=== PATIENT | female | born 1990 | race Caucasian/White ===

== ENCOUNTER 2017-03-29 17:19 | Emergency (ER) | payer OTHER ==
[~2017-03-29] VITALS: Ht 160 cm; Wt 72.0 kg
[~2017-03-29 17:19] MED LIST: ADVAI100I PO; ALBU2.5I NEB; CALC600T34 PO; CYAN1000P IM; ERGO50000 PO; FLOVENT110 MCG/A INH; IRONTAB4 PO; MONT10TA2 PO; MULT-65 PO; OXYC1SOL5 PO; XOPEAER4 INH; ZITHTAB PO
[2017-03-29 17:21] VITALS: BP 145/67; PULSE 108; RESP 19; TEMP 98; O2SAT 100
--- NOTE | 2017-03-29 17:25 | PD ---
Physical Exam Time Seen by Provider: 17:23 Narrative 27 y/o female w/ hx of asthma presents with 4-5 days of wheezing. Using at home medications with some relief. vital signs reviewed. Seen at triage desk. Awaiting bed placement. Data Data Last Documented VS Vital Signs Date Time Temp Pulse Resp B/P Pulse Ox O2 Delivery O2 Flow Rate FiO2 03/29/17 17:21 98.0 108 19 145/67 100 MDM Medical Record Reviewed: Yes Supervised Visit with MARLI: Fabiano Thomas March 29, 2017 17:24
[2017-03-29] MEDS ORDERED: RESP: ALBUTEROL 2.5 MG/IPRATROPIUM 0.5 MG NEB (SCH) INH ONE (18:15)
[2017-03-29] MEDS ORDERED: predniSONE 20 MG TAB PO ONE (18:15)
--- NOTE | 2017-03-29 18:18 | PD ---
HPI Chief Complaint: Respiratory Symptoms Time Seen by Provider: 18:14 Travel History International Travel<30 days: No Contact w/Intl Traveler<30days: No Traveled to known affect area: No History of Present Illness HPI 27-year-old female presents to emergency department with complaint of asthma exacerbation for the last 2-3 days. Says her inhaler and albuterol nebulizers aren't working for her anymore. She has been using them without relief of chest tightness and shortness of breath. At that she's really not a wheezer just feels like she is breathing through a straw. Reports onset of nasal congestion this morning but otherwise denies other upper respiratory symptoms. Denies fever, vomiting. Allergies to Pediazole, penicillin, sulfa. Has no other medical complaints. No other modifying factors or associated signs and symptoms. PFSH Past Medical History Asthma: Yes Autoimmune Disease: Yes (LUPUS) Cancer: No Cardiovascular Problems: No Diabetes: No Diminished Hearing: No Endocrine: No GERD: Yes Genitourinary: No Hepatitis: No Hiatal Hernia: No Immune Disorder: Yes (lupus) Musculoskeletal: No Neurologic: No Psychiatric: No Respiratory: Yes (ASTHMA) Immunizations Current: No Thyroid Disease: No ?: Not LMP: 03/29/17 Menopausal: No : 0 Para: 0 Miscarriage: 0 : 0 Past Surgical History Other Surgery: Yes (PREMELANOMA) Social History Alcohol Use: No Tobacco Use: No Substance Use: No Allergies-Medications (Allergen,Severity, Reaction): Coded Allergies: Pediazole (Verified Allergy, Severe, ANAPHILAXIS, 03/29/17) Penicillin (Verified Allergy, Severe, ANAPHILAXIS, 03/29/17) Sulfa (Verified Allergy, Severe, ANAPHILAXIS, 03/29/17) Reported Meds & Prescriptions Reported Meds & Active Scripts Active Zithromax Z-David (Azithromycin) 250 Mg Dspk 250 Mg PO DIRECTED 500 MG (2 tabs) day 1, then 1 tab days 2-5. Nasonex Nasal [place] (Mometasone Furoate) 50 Mcg/Act Naspr 2 [place] EACH NARE DAILY PRN Deltasone (Prednisone) 20 Mg Tab 40 Mg PO DAILY 4 Days start 03/30/2017 Reported Ventolin Hfa 18 GM Inh (Albuterol Sulfate) 90 Mcg/Act Aer 2 Puff INH Q4-6H PRN Multi Vitamin (Multiple Vitamin) 1 Tab Tab 1 Tab PO DAILY Singulair (Montelukast Sodium) 10 Mg Tab 10 Mg PO DAILY Vitamin D3 (Cholecalciferol) 50,000 Unit Tab 50,000 Units PO Q7D Cyanocobalamin Inj (Cyanocobalamin) 1,000 Mcg/Ml Inj 1,000 Mcg IM EVERY 2 WEEKS Calcium 600 Mg Tab 1,200 Mg PO DAILY Albuterol Neb (Albuterol Sulfate) 2.5 Mg/3 Ml Neb 2.5 Mg NEB Q4HR PRN Advair Diskus Inh (Fluticasone-Salmeterol Inh) 500-50 Mcg/Blist Aer 1 Puff INH BID Rinse mouth after use. Review of Systems Except as stated in HPI: all other systems reviewed are Neg Physical Exam Narrative GENERAL: Well-nourished, well-developed female patient, in no acute distress SKIN: Warm and dry. HEAD: Atraumatic. Normocephalic. EYES: Pupils equal and round. No scleral icterus. No injection or drainage. ENT: Mucosa pink and moist. Airway patent. NECK: Trachea midline. CARDIOVASCULAR: Regular rate and rhythm. No murmur appreciated. RESPIRATORY: No accessory muscle use. Breath sounds clear and equal bilaterally with decreased lung sounds in bilateral bases. No retractions or tachypnea. GASTROINTESTINAL: Flat. MUSCULOSKELETAL: No obvious deformities. No clubbing. No cyanosis. No edema. NEUROLOGICAL: Awake and alert. Oriented 3. No obvious cranial nerve deficits. Motor grossly within normal limits. Normal speech. PSYCHIATRIC: Appropriate mood and affect; insight and judgment normal. Data Data Last Documented VS Vital Signs Date Time Temp Pulse Resp B/P Pulse Ox O2 Delivery O2 Flow Rate FiO2 03/29/17 17:21 98.0 108 19 145/67 100 Orders Prednisone (Deltasone) (03/29/17 18:15) Albuterol-Ipratropium Neb (Duoneb Neb) (03/29/17 18:15) Albuterol-Ipratropium Neb (Duoneb Neb) (03/29/17 19:30) Azithromycin (Zithromax) (03/29/17 19:30) [facility] Medical Decision Making Medical Screen Exam Complete: Yes Emergency Medical Condition: Yes Medical Record Reviewed: Yes Differential Diagnosis Asthma exacerbation, viral illness, bronchitis Narrative Course 27-year-old female with history of asthma with mild asthma exacerbation. She also reports nasal congestion that started today. Denies fever or vomiting. Patient is afebrile nontoxic appearing. She is in no acute distress and oxygen saturation is other percent on room air. She is without retractions or tachypnea. Lungs are clear and equal throughout with decreased breath sounds in bilateral bases. DuoNeb and Deltasone administered in the ER. 1900: CK Burgos assumed patient care at this time. See her note for final patient disposition. Diagnosis Primary Impression: Asthma exacerbation Additional Impression: Nasal congestion Referrals: Primary Care Physician Patient Instructions: Asthma (ED), General Instructions Departure Forms: Tests/Procedures, Work Release Enter return to work date: March 31, 2017 Additional Instructions: Use albuterol inhaler 2-4 puffs every 4 hours at home as needed for shortness of breath and wheezing Take oral steroids as prescribed and complete full course avoid asthma triggers such as second hand smoke, dust, known allergens Follow-up with primary care provider within 1 to 2 days Return to emergency department immediately with worsening of symptoms Med/Other Pt SpecificInfo: Prescription(s) given Scripts Azithromycin (Zithromax Z-David)250 Mg [id number] Mg PO DIRECTED #1 DSPK Ref 0 500 MG (2 tabs) day 1, then 1 tab days 2-5. Prov:Radha Henriquez 03/29/17 Mometasone Nasal [place] (Nasonex Nasal [place])50 Mcg/Act Naspr2 [place] EACH NARE DAILY PRN (NASAL CONGESTION) #1 BOTTLE Ref 0 Prov:Thelma Brown 03/29/17 Prednisone (Deltasone)20 Mg Tab40 Mg PO DAILY 4 Days Ref 0 start 03/30/2017 Prov:Thelma Brown 03/29/17 Disposition: 01 DISCHARGE HOME Condition: Stable Thelma Brown March 29, 2017 18:18
[2017-03-29] MEDS ORDERED: PRED-503 PO (18:49)
[2017-03-29] MEDS ORDERED: MOME17I EACH NARE (18:49)
[2017-03-29] MEDS ORDERED: MONT10TA2 PO (18:56)
[2017-03-29] MEDS ORDERED: ADVA500A INH (18:56)
[2017-03-29] MEDS ORDERED: CALC600T13 PO (18:56)
[2017-03-29] MEDS ORDERED: CHOL1TAB16 PO (18:56)
[2017-03-29] MEDS ORDERED: ALBU0.08 NEB (18:56)
[2017-03-29] MEDS ORDERED: MULT-135 PO (18:56)
[2017-03-29] MEDS ORDERED: CYAN1000P IM (18:56)
[2017-03-29] MEDS ORDERED: VENTAER INH (18:57)
[2017-03-29] MEDS ORDERED: ZITHTAB PO (19:24)
--- NOTE | 2017-03-29 19:24 | PD ---
Physical Exam Time Seen by Provider: 19:24 Narrative Please refer to previous providers documentation for details surrounding the patient's current visit. Data Data Last Documented VS Vital Signs Date Time Temp Pulse Resp B/P Pulse Ox O2 Delivery O2 Flow Rate FiO2 03/29/17 17:21 98.0 108 19 145/67 100 Orders Prednisone (Deltasone) (03/29/17 18:15) Albuterol-Ipratropium Neb (Duoneb Neb) (03/29/17 18:15) Albuterol-Ipratropium Neb (Duoneb Neb) (03/29/17 19:30) Azithromycin (Zithromax) (03/29/17 19:30) MDM Medical Record Reviewed: Yes Supervised Visit with MARLI: No Narrative Course 27 year-old female history of asthma presents to the emergency department for evaluation of worsening shortness of breath with associated wheezing. Patient states she now has cough and cold symptoms. States that her asthma is poorly controlled and this is being worked on outpatient. States typically when she begins to have an exacerbation she is started on azithromycin due to previous pneumonia diagnosis. She had a chest x-ray done last week which she states was clear. Patient continues to have slight amount of wheezing and chest tightness. She'll given additional DuoNeb. Upon reassessment, patient states that she does feel much better. Wheezing has resolved. Patient will be started on oral corticosteroids and provided prescription for azithromycin. She is encouraged to follow-up with her primary care provider and return immediately with any acute worsening symptoms. Diagnosis Primary Impression: Asthma exacerbation Additional Impression: Nasal congestion Referrals: Primary Care Physician Patient Instructions: General Instructions, Asthma (ED) Departure Forms: Work Release, Enter return to work date: Tests/Procedures Additional Instruction: Use albuterol inhaler 2-4 puffs every 4 hours at home as needed for shortness of breath and wheezing Take oral steroids as prescribed and complete full course avoid asthma triggers such as second hand smoke, dust, known allergens Follow-up with primary care provider within 1 to 2 days Return to emergency department immediately with worsening of symptoms Scripts Azithromycin (Zithromax Z-David)250 Mg [id number] Mg PO DIRECTED #1 DSPK Ref 0 500 MG (2 tabs) day 1, then 1 tab days 2-5. Prov:Radha Henriquez 03/29/17 Mometasone Nasal [place] (Nasonex Nasal [place])50 Mcg/Act Naspr2 [place] EACH NARE DAILY PRN (NASAL CONGESTION) #1 BOTTLE Ref 0 Prov:Thelma Brown 03/29/17 Prednisone (Deltasone)20 Mg Tab40 Mg PO DAILY 4 Days Ref 0 start 03/30/2017 Prov:Thelma Brown 03/29/17 Disposition: 01 DISCHARGE HOME Condition: Stable Radha Henriquez March 29, 2017 19:24
[2017-03-29] MEDS: RESP: ALBUTEROL 2.5 MG/IPRATROPIUM 0.5 MG NEB (SCH) INH ×2 (19:27→19:28)
[2017-03-29] MEDS ORDERED: AZITHROMYCIN 250 MG TAB PO ONE (19:30)
== END 2017-03-29 20:09 | disposition home or self-care (01) ==
LOC: NEPK 17:19
DX: J45.901 Unspecified asthma with (acute) exacerbation (principal); R09.81 Nasal congestion; R07.89 Other chest pain; Z87.09 Personal history of other diseases of the respiratory system; Z86.2 Personal history of diseases of the blood and blood-forming organs and certain disorders involving the immune mechanism; Z87.19 Personal history of other diseases of the digestive system
CPT/HCPCS: 94640; 94664; 99282; J7512

== ENCOUNTER 2018-01-30 00:29 | Emergency (ER) | payer OTHER ==
[~2018-01-30] VITALS: Ht 160 cm; Wt 72.6 kg
[~2018-01-30 00:29] MED LIST changes: +ADVA500A INH; -ADVAI100I PO; +ALBU0.08 NEB; -ALBU2.5I NEB; +CALC600T13 PO; -CALC600T34 PO; +CHOL1TAB16 PO; -ERGO50000 PO; -FLOVENT110 MCG/A INH; -IRONTAB4 PO; +MOME17I EACH NARE; +MULT-135 PO; -MULT-65 PO; -OXYC1SOL5 PO; +PRED-503 PO; +VENTAER INH; -XOPEAER4 INH
[2018-01-30 00:41] VITALS: BP 121/68; PULSE 98; RESP 18; TEMP 97.9; O2SAT 99
[2018-01-30] MEDS ORDERED: MULTTAB67 PO (01:01)
[2018-01-30] MEDS ORDERED: AZIT250T3 PO (01:08)
[2018-01-30] MEDS ORDERED: PLAQ200T PO (01:12)
[2018-01-30] MEDS ORDERED: VITADRO3 PO (01:17)
[2018-01-30] MEDS ORDERED: Calcium PO (01:18)
[2018-01-30] MEDS ORDERED: SODIUM CHLOR 0.9% 1000 ML INJ 1,000 ML IV ONE ×2 (01:41→03:00)
[2018-01-30] MEDS ORDERED: ONDANSETRON HCL 4 MG/2 ML VIAL IV PUSH ONE ×2 (01:45→04:15)
[2018-01-30] MEDS ORDERED: SODIUM CHLORIDE 0.9% FLUSH 10 ML FLUSH IVF PRN (01:45)
--- NOTE | 2018-01-30 01:46 | PD ---
HPI Chief Complaint: GI Complaint Time Seen by Provider: 01:41 Travel History International Travel<30 days: No Contact w/Intl Traveler<30days: No Traveled to known affect area: No History of Present Illness HPI 27-year-old female presents to the emergency department complaint of 2 days of nausea vomiting diarrhea and intermittent abdominal pain. Patient states son with recent similar symptoms and coworkers was recent similar symptoms. No report of hematemesis or coffee-ground emesis. Patient states with onset of diarrhea did note some mucoid stool and some dark stool but now has clear urine looking diarrhea. Patient continues to produce urine. No report of fever. Patient denies and is currently menstruating. Patient has history of lupus and asthma which she reports is well controlled. Patient states she takes azithromycin with probiotic daily. Current discomfort is rated 3/10 intensity. 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) Cancer: No Cardiovascular Problems: No Diabetes: No Diminished Hearing: No Endocrine: No GERD: Yes Genitourinary: No Hepatitis: No Hiatal Hernia: No Immune Disorder: Yes (Lupus) Musculoskeletal: No Neurologic: No Psychiatric: No Respiratory: Yes (ASTHMA) Immunizations Current: No Thyroid Disease: No Tetanus Vaccination: Unknown Influenza Vaccination: No ?: Unknown LMP: NOW Menopausal: No : 1 Para: 1 Miscarriage: 0 : 0 Past Surgical History Abdominal Surgery: Yes Section: Yes Other Surgery: Yes (PREMELANOMA) Social History Alcohol Use: Yes (Rarely) Tobacco Use: No Substance Use: No Allergies-Medications (Allergen,Severity, Reaction): Coded Allergies: Sulfa (Sulfonamide Antibiotics) (Unverified Allergy, Severe, ANAPHILAXIS, 01/30/18) erythromycin base (Unverified Allergy, Severe, ANAPHILAXIS, 01/30/18) penicillin G (Unverified Allergy, Severe, ANAPHILAXIS, 01/30/18) sulfisoxazole (Unverified Allergy, Severe, ANAPHILAXIS, 01/30/18) Reported Meds & Prescriptions Reported Meds & Active Scripts Active Nasonex Nasal [place] (Mometasone Furoate) 50 Mcg/Act Naspr 2 [place] EACH NARE DAILY PRN Reported [Calcium ] 600 Tab PO DAILY Vitamin D3 Liq Drops (Cholecalciferol) 5,000 Unit/Ml Drops 4 Drop PO DAILY Take with meals. Plaquenil (Hydroxychloroquine Sulfate) 200 Mg Tab 200 Mg PO DAILY Take with food Azithromycin 250 Mg Tab 200 Mg PO DAILY Multiple Vitamin 1 Tab 1 Tab PO DAILY Ventolin Hfa 18 GM Inh (Albuterol Sulfate) 90 Mcg/Act Aer 2 Puff INH Q4-6H PRN Singulair (Montelukast Sodium) 10 Mg Tab 10 Mg PO DAILY Cyanocobalamin Inj (Cyanocobalamin) 1,000 Mcg/Ml Inj 1,000 Mcg IM EVERY 2 WEEKS Albuterol Neb (Albuterol Sulfate) 2.5 Mg/3 Ml Neb 2.5 Mg NEB Q4HR PRN Advair Diskus Inh (Fluticasone-Salmeterol Inh) 500-50 Mcg/Blist Aer 1 Puff INH BID Rinse mouth after use. Review of Systems Except as stated in HPI: all other systems reviewed are Neg General / Constitutional: No: Fever HENT: No: Congestion Cardiovascular: No: Chest Pain or Discomfort Respiratory: No: Shortness of Breath Gastrointestinal: Positive: Nausea, Vomiting, Diarrhea, Abdominal Pain Genitourinary: No: Dysuria (Intermittent) Musculoskeletal: No: Myalgias, Arthralgias Skin: No Rash Neurologic: No: Weakness Psychiatric: No: Anxiety Hematologic/Lymphatic: No: Easy Bruising Physical Exam Narrative GENERAL: Well-developed well-nourished female no acute distress or respiratory distress SKIN: Warm and dry. HEAD: Normocephalic. EYES: No scleral icterus. No injection or drainage. NECK: Supple, trachea midline. No JVD or lymphadenopathy. CARDIOVASCULAR: Regular rate and rhythm without murmurs, gallops, or rubs. RESPIRATORY: Breath sounds equal bilaterally. No accessory muscle use. GASTROINTESTINAL: Abdomen soft, non-tender, no guarding or rebound, nondistended. MUSCULOSKELETAL: No cyanosis, or edema. BACK: Nontender without obvious deformity. No CVA tenderness. Data Data Last Documented VS Vital Signs Date Time Temp Pulse Resp B/P (MAP) Pulse Ox O2 Delivery O2 Flow Rate FiO2 01/30/18 02:21 88 16 119/70 (86) 100 Room Air 01/30/18 00:41 97.9 Orders Orders Complete Blood Count With Diff (01/30/18 01:41) Comprehensive Metabolic Panel (01/30/18 01:41) Urinalysis - C+S If Indicated (01/30/18 01:41) Lipase (01/30/18 01:41) Abdomen, Flat & Upright (01/30/18 ) Iv Access Insert/Monitor (01/30/18 01:41) Ecg Monitoring (01/30/18 01:41) Oximetry (01/30/18 01:41) Ondansetron Inj (Zofran Inj) (01/30/18 01:45) Sodium Chlor 0.9% 1000 Ml Inj (Ns 1000 M (01/30/18 01:41) Sodium Chloride 0.9% Flush (Ns Flush) (01/30/18 01:45) Enteric Path (Stool) (01/30/18 01:41) Ed Urine Pregnancytest Poc (01/30/18 01:41) Sodium Chlor 0.9% 1000 Ml Inj (Ns 1000 M (01/30/18 03:00) Ct Abd/Pel W Iv Contrast(Rout) (01/30/18 ) Iohexol 350 Inj (Omnipaque 350 Inj) (01/30/18 03:22) Labs Laboratory Tests Test 01/30/18 01:30 01/30/18 02:00 Urine Collection Type CATH Urine Color YELLOW Urine Turbidity CLEAR Urine pH 6.0 Urine Specific [place] 1.025 Urine Protein TRACE mg/dL Urine Glucose (UA) NEG mg/dL Urine Ketones 80 OR GREATER mg/dL Urine Occult Blood MOD Urine Nitrite NEG Urine Bilirubin NEG Urine Urobilinogen 0.2 MG/DL Urine Leukocyte Esterase NEG Urine RBC 0-3 /hpf Urine Squamous Epithelial Cells 0-5 /hpf Urine Mucus MOD /lpf Microscopic Urinalysis Comment CULT NOT INDICATED White Blood Count 16.4 TH/MM3 Red Blood Count 4.99 MIL/MM3 Hemoglobin 15.2 GM/DL Hematocrit 43.6 % Mean Corpuscular Volume 87.4 FL Mean Corpuscular Hemoglobin 30.5 PG Mean Corpuscular Hemoglobin Concent 34.9 % Red Cell Distribution Width 13.1 % Platelet Count 217 TH/MM3 Mean Platelet Volume 7.8 FL Neutrophils (%) (Auto) 86.8 % Lymphocytes (%) (Auto) 4.0 % Monocytes (%) (Auto) 4.6 % Eosinophils (%) (Auto) 0.2 % Basophils (%) (Auto) 4.4 % Neutrophils # (Auto) 14.2 TH/MM3 Lymphocytes # (Auto) 0.7 TH/MM3 Monocytes # (Auto) 0.8 TH/MM3 Eosinophils # (Auto) 0.0 TH/MM3 Basophils # (Auto) 0.7 TH/MM3 CBC Comment DIFF FINAL Differential Comment Blood Urea Nitrogen 10 MG/DL Creatinine 0.74 MG/DL Random Glucose 95 MG/DL Total Protein 8.0 GM/DL Albumin 4.3 GM/DL Calcium Level 8.8 MG/DL Alkaline Phosphatase 55 U/L Aspartate Amino Transf (AST/SGOT) 10 U/L Alanine Aminotransferase (ALT/SGPT) 25 U/L Total Bilirubin 0.7 MG/DL Sodium Level 139 MEQ/L Potassium Level 3.4 MEQ/L Chloride Level 106 MEQ/L Carbon Dioxide Level 25.0 MEQ/L Anion Gap 8 MEQ/L Estimat Glomerular Filtration Rate 96 ML/MIN Lipase 123 U/L MDM Medical Decision Making Medical Screen Exam Complete: Yes Emergency Medical Condition: Yes Medical Record Reviewed: Yes Interpretation(s) POC hcg: negative Last Impressions Abdomen/Pelvis CT 01/30/18 0000 Signed Impressions: Service Date/Time: Tuesday, January 30, 2018 03:17 - CONCLUSION: 1. There is a small amount of free fluid in the posterior cul-de-sac within the pelvis. This is nonspecific but may be physiologic. 2. Small bowel and colon is mostly filled with fluid. There are no findings to indicate obstruction. Rafiq Escalona MD Abdomen X-Ray 01/30/18 0000 Signed Impressions: Service Date/Time: Tuesday, January 30, 2018 01:47 - CONCLUSION: No acute abnormality is identified. Rafiq Escalona MD CBC & BMP Diagram 01/30/18 02:00 Total Protein 8.0, Albumin 4.3, Calcium Level 8.8, Alkaline Phosphatase 55, Aspartate Amino Transf (AST/SGOT) 10 L, Alanine Aminotransferase (ALT/SGPT) 25, Total Bilirubin 0.7 Vital Signs Date Time Temp Pulse Resp B/P (MAP) Pulse Ox O2 Delivery O2 Flow Rate FiO2 01/30/18 02:21 88 16 119/70 (86) 100 Room Air 01/30/18 00:41 97.9 98 18 121/68 (85) 99 Differential Diagnosis Gastroenteritis, foodborne illness, viral syndrome, dehydration, electrolyte disturbance, anemia, C. difficile Narrative Course IV access obtained specimens collected and sent for resulting patient given liter of normal saline along with Zofran 4 mg IV Diagnosis Primary Impression: Acute gastroenteritis Additional Impression: Dehydration Referrals: Primary Care Physician 2 days Patient Instructions: General Instructions Departure Forms: Tests/Procedures, Work Release Special Instructions: no work x 2 days Additional Instructions: Follow-up with your primary care provider Follow clear liquid diet for next 12-24 hours advance as tolerated to bland/ brat diet then regular diet avoiding fried and fatty foods Monitor temperature every 4 hours with thermometer; take acetaminophen/Tylenol as needed for fever 100.4F or greater Take ibuprofen as tolerated for pain associated with inflammation or for fever 100.4F or greater no more often than every 6-8 hours No work x 2 days Med/Other Pt SpecificInfo: Prescription(s) given Scripts Metoclopramide (Reglan) 10 Mg Tab 10 MG PO Q6HR, #12 TAB 0 Refills Prov: Rachel Amos MD 01/30/18 Hyoscyamine (Levsin) 0.125 Mg Tab 0.125 MG PO Q6H for Gastrointestinal disorders, #7 TAB 0 Refills Prov: Rachel Amos MD 01/30/18 Disposition: 01 DISCHARGE HOME Condition: Stable Rachel Amos MD Jan 30, 2018 01:45
[2018-01-30 01:58] LABS: BLOOD, URINE MOD (NEG); GLUCOSE,URINE NEG (NEG); KETONE, URINE 80 OR GREATER mg/dL (NEG); NITRITE,URINE NEG (NEG); URINE COLOR YELLOW (YELLW/STRAW); URINE LEUKOCYTE ESTERASE NEG (NEG)
[2018-01-30 02:10] LABS: BILIRUBIN, URINE NEG (NEG)
[2018-01-30 02:13] LABS: MUCUS URINE MOD /lpf (OCC); RBC, URINE 0-3 /hpf (0-3); SQUAMOUS EPITHELIAL CELL URINE 0-5 /hpf (0-5)
--- NOTE | 2018-01-30 02:15 | RADRPT ---
EXAM DATE/TIME: 01/30/2018 01:47 [facility] COMPARISON: No previous studies available for comparison. INDICATIONS : Nausea, vomiting, diarrhea. MEDICAL HISTORY : None. SURGICAL HISTORY : None. ENCOUNTER: Initial ACUITY: 2 days PAIN SCORE: 4/10 LOCATION: Bilateral upper quadrant FINDINGS: Supine and upright views of the abdomen demonstrate air within small and large bowel in a nonobstruct kailash pattern. No organomegaly or abnormal calcifications are identified. No abnormal mass effect is ap preciated. Upright image demonstrates no free intraperitoneal air or significant air-fluid level. Vis ualized bones demonstrate no acute finding and lower lung zones are clear. CONCLUSION: No acute abnormality is identified. Rafiq Escalona MD on January 30, 2018 at 2:13 Board Certified Radiologist. This report was verified electronically.
[2018-01-30 02:21] VITALS: BP 119/70; PULSE 88; RESP 16; O2SAT 100
[2018-01-30 02:21] LABS: AUTOMATED NEUTROPHIL # 14.2 TH/MM3 (1.8-7.7); BASOPHIL # 0.7 TH/MM3 (0-0.2); BASOPHIL % 4.4 % (0.0-2.0); EOSINOPHIL % 0.2 % (0.0-4.0); HEMATOCRIT 43.6 % (35.0-46.0); HEMOGLOBIN 15.2 GM/DL (11.6-15.3); LYMPHOCYTE # 0.7 TH/MM3 (1.0-4.8); MEAN CELL VOLUME 87.4 FL (80.0-100.0); MEAN CORPUSCULAR HEMOGLOBIN 30.5 PG (27.0-34.0); MEAN CORPUSCULAR HGB CONC 34.9 % (32.0-36.0); MEAN PLATELET VOLUME 7.8 FL (7.0-11.0); MONO % 4.6 % (0.0-8.0); MONOCYTE # 0.8 TH/MM3 (0-0.9); NEUT % 86.8 % (16.0-70.0); PLATELET COUNT 217 TH/MM3 (150-450); RED BLOOD COUNT 4.99 MIL/MM3 (4.00-5.30); RED CELL DISTRIBUTION WIDTH 13.1 % (11.6-17.2); WHITE BLOOD COUNT 16.4 TH/MM3 (4.0-11.0)
[2018-01-30 02:27] LABS: CHLORIDE 106 MEQ/L (98-107); SODIUM (NA) 139 MEQ/L (136-145)
[2018-01-30 02:30] LABS: CALCIUM 8.8 MG/DL (8.5-10.1)
[2018-01-30 02:31] LABS: ALBUMIN 4.3 GM/DL (3.4-5.0); BLOOD UREA NITROGEN 10 MG/DL (7-18); GLUCOSE,RANDOM 95 MG/DL (74-106)
[2018-01-30 02:34] LABS: ALT (GPT) 25 U/L (10-53); AST (GOT) 10 U/L (15-37); CREATININE 0.74 MG/DL (0.50-1.00); GLOMERULAR FILTRATION RATE 96 ML/MIN (>89)
[2018-01-30 02:36] LABS: TOTAL BILIRUBIN ADULT 0.7 MG/DL (0.2-1.0)
[2018-01-30 02:37] LABS: ALKALINE PHOSPHATASE 55 U/L (45-117)
[2018-01-30] MEDS ORDERED: IOHEXOL 350 MG/ML 10 ML VIAL (for RAD DIAG) IVCONTRAST ONE (03:22)
--- NOTE | 2018-01-30 03:54 | RADRPT ---
EXAM DATE/TIME: 01/30/2018 03:17 [facility] COMPARISON: No previous studies available for comparison. INDICATIONS : Abdominal pain. Nausea and vomiting. IV CONTRAST: 100 cc Omnipaque 350 (iohexol) IV ORAL CONTRAST: No oral contrast ingested. RADIATION DOSE: 12.66 CTDIvol (mGy) MEDICAL HISTORY : None SURGICAL HISTORY : section. ENCOUNTER: Initial ACUITY: 2 days PAIN SCALE: 3/10 LOCATION: Bilateral abdomen TECHNIQUE: Volumetric scanning of the abdomen and pelvis was performed. Using automated exposure control and ad justment of the mA and/or kV according to patient size, radiation dose was kept as low as reasonably achievable to obtain optimal diagnostic quality images. DICOM format image data is available electro nically for review and comparison. FINDINGS: LOWER LUNGS: The visualized lower lungs are clear. LIVER: Homogeneous density without lesion. There is no dilation of the biliary tree. No calcified gallston es. SPLEEN: Normal size without lesion. PANCREAS: Within normal limits. KIDNEYS: Normal in size and shape. There is no mass, stone or hydronephrosis. ADRENAL GLANDS: Within normal limits. VASCULAR: There is no aortic aneurysm. BOWEL/MESENTERY: The stomach, small bowel, and colon demonstrate no acute abnormality. The small bowel and colon is m ostly filled with fluid. There is no free intraperitoneal air. There is trace free fluid in the pelvi s. ABDOMINAL WALL: Within normal limits. RETROPERITONEUM: There is no lymphadenopathy. BLADDER: No wall thickening or mass. REPRODUCTIVE: Within normal limits. INGUINAL: There is no lymphadenopathy or hernia. MUSCULOSKELETAL: Within normal limits for patient age. CONCLUSION: 1. There is a small amount of free fluid in the posterior cul-de-sac within the pelvis. This is nonsp ecific but may be physiologic. 2. Small bowel and colon is mostly filled with fluid. There are no findings to indicate obstruction. Rafiq Escalona MD on January 30, 2018 at 3:49 Board Certified Radiologist. This report was verified electronically.
[2018-01-30] MEDS ORDERED: LEVS0.123 PO (04:08)
[2018-01-30] MEDS ORDERED: REGL10TA5 PO (04:08)
[2018-01-30] MEDS ORDERED: KETOROLAC TROMETHAMINE 30 MG/ML (IVP) VIAL IV PUSH ONE (04:15)
[2018-01-30 04:22] VITALS: BP 102/63; PULSE 91; RESP 16; O2SAT 100
[2018-01-31] MEDS ORDERED: CALCTAB94 PO (13:08)
== END 2018-01-30 04:37 | disposition home or self-care (01) ==
LOC: PHED 00:29
DX: K52.9 Noninfective gastroenteritis and colitis, unspecified (principal); E86.0 Dehydration; M32.9 Systemic lupus erythematosus, unspecified; D80.2 Selective deficiency of immunoglobulin A [IgA]; J45.909 Unspecified asthma, uncomplicated
CPT/HCPCS: 74019; 74177; 80053; 81001; 83690; 84703; 85025; 87506; 96361; 96374; 96375; 96376; 99284; J1885; J2405; J7030; Q9967